=== PATIENT | female | born 1970 | race African-American/Black ===

== ENCOUNTER 2017-08-24 11:28 | Day surgery (SDC) | payer BC, OTHER ==
--- NOTE | 2017-08-23 14:13 | HP ---
Past Medical History - Primary Care Physician PCP:: Elliott Gomez - Admission Chief Complaint: Heavy irregular bleeding History of Present Illness: 46 year old Go complaining of heavy vaginal bleeding since August 17. She had not had any bleeding for 4 months. Bleeding became so heavy accompanied with severe pain which required ED evaluation at [facility]. Prior to March 2017 she was having vaginal bleeding irregularly everyother month. Patient was last seen in 2013 and due to large size of uterus with fibroids had gone for a second opinion regarding hysterectomy. Accourding to [facility], second opinion said Hysterectomy not necessary at that time. 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 Christina, client support manager with removal of endometrial polyps. - Past Medical History Pulmonary: Yes: Asthma Gastrointestinal: Yes: Irritable Bowel Disease Reproductive: Yes: Fibroids ...: 0 Heme/Onc: Yes: Anemia Rheumatology: Yes: Fibromyalgia, Lupus, Rheumatoid Arthritis Additional Medical History: Rheumatoid arthitis. Fibromyalgia. IBS. Lupus - Past Surgical History Past Surgical History: Yes: None Hx Myomectomy: No Hx Transabdominal Cerclage: No Additional Surgical History: D and C Hsyteroscopy 07/25/2012 Endometrial polyp. Cholecystectomy. Endometrial biopsy 07/15/2014 Disordered endometrium - Smoking History Smoking history: Never smoked Have you smoked in the past 12 months: No Aproximately how many cigarettes per day: 0 - Alcohol/Substance Use Hx Alcohol Use: No History of Substance Use: reports: None - Social History ADL: Independent History of Recent Travel: No Home Medications - Allergies Allergies/Adverse Reactions: Allergies Allergy/AdvReac Type Severity Reaction Status Date / Time moxifloxacin HCl Allergy Verified 08/20/17 16:32 [From Avelox] Penicillins Allergy Verified 08/20/17 16:32 - Home Medications Home Medications: Ambulatory Orders Montelukast Na [Singulair -] 10 mg PO HS #0 12/14/14 Omeprazole [Prilosec] 40 mg PO DAILY #0 12/14/14 Hydroxychloroquine Sulfate [Plaquenil] 400 mg PO DAILY 11/03/15 Ibuprofen 600 mg PO Q6H PRN #30 tablet 10/26/16 Oxycodone HCl/Acetaminophen [Endocet 7.5-325 mg Tablet] 1 each PO Q4H PRN #20 tablet MDD 6 tab 10/26/16 Pregabalin [Lyrica -] 100 mg PO BID 10/26/16 Family Disease History - Family Disease History Family Disease History: Diabetes: Grandparent, Heart Disease: Mother, Other: Brother (scleroderma) Other Family History: Cousin: Breast cancer Review of Systems - Review of Systems Constitutional: reports: Weakness Neck: reports: No Symptoms Cardiovascular: reports: No Symptoms Respiratory: reports: No Symptoms Gastrointestinal: reports: Abdominal Pain (Cramoing with onset of bleeding.) Musculoskeletal: reports: Back Pain, Joint Pain Neurological: reports: Headache Physical Exam-RHEOSTAT ASSEMBLER Constitutional: Yes: Obese HENT: Yes: WNL Neck: Yes: WNL, Supple, Trachea Midline Cardiovascular: Yes: WNL, Regular Rate and Rhythm Respiratory: Yes: WNL, Regular, CTA Bilaterally Gastrointestinal: Yes: WNL, Normal Bowel Sounds, Soft, Abdomen, Obese ...Rectal Exam: Yes: WNL Pelvis: Yes: WNL External Genitalia: Yes: Normal Internal Exam Deferred: No Vaginal Exam: Yes: Bleeding Cervix: Yes: Bleeding (No cervical lesion) Uterus: Yes: Anteverted, Enlarged, Firm Adnexa: Normal: Bilateral Extremities: Yes: WNL Edema: No Neurological: Yes: WNL, Alert, Oriented Psychiatric: Yes: WNL, Alert, Oriented Imaging - Results Ultrasound: Report Reviewed (Uterus is antevertedd and enlarged measuring 20 by 7 by 12 cm. Structure within left fundus 8 by 9 by 9 cm thickened endometrium vs leiomyoma. Lower uterune segment intramural 3.4 cm.), Image Reviewed Assessment/Plan Impression: Irregular heavy vaginal bleeding Anemia Fibroid uterus Plan: D and C Hysteroscopy Discussed possible hysterectomy if bleeding unable to be controlled. Importance of obtaining tissue for diagnosis to rule out neoplasia.
[2017-08-23 15:11] VITALS: BMI 44.2
--- NOTE | 2017-08-24 11:44 | HP ---
History & Physical Update - Assessment Assessment: No Change (46yo P0 with menometrorrhagia, fibroid uterus, and heavy vaginal bleeding leading to anemia admitted for hysteroscopy, D&C. We had discussed the risks, benefits, alternatives of surgery at length including but not limited to infection, bleeding, scarring, perforation, amenorrhea, infertility, hysterectomy, injury to surrounding/underlying organs or structure , need for additional surgery to repair/treat any complications, etc. The patient verbalized understanding and requested to proceed with surgery. I emphasized that all surgeries have risks and no guarantees can be provided.)
[2017-08-24] MEDS ORDERED: PROPOFOL 20 ML ONE (13:49)
[2017-08-24] MEDS ORDERED: MIDAZOLAM HCL 2 MG/2 ML SINGLE DOSE VIAL ONE ×2 (13:51→14:00)
[2017-08-24] MEDS ORDERED: ROCURONIUM BROMIDE 50 MG/5 ML VIAL ONE (14:05)
[2017-08-24] MEDS ORDERED: oxyCODONE HCL 5 MG TABLET PO PRN (14:16)
[2017-08-24] MEDS ORDERED: ONDANSETRON 4 MG/2 ML VIAL IVPUSH PRN (14:16)
[2017-08-24] MEDS ORDERED: LACTATED RINGERS SOLUTION 1,000 ML IV SCH (14:30)
[2017-08-24 16:19] VITALS: TEMP 98
[2017-08-24 17:27] VITALS: BP 129/74; PULSE 97
--- NOTE | 2017-08-24 17:27 | OP ---
Operative Note - Note: Operative Date: 08/24/17 Pre-Operative Diagnosis: Menometrorrhagia Operation: Hysteroscopy, D&C Findings: Enlarged uterine cavity, several submucous fundal myomas, thin endometrium Post-Operative Diagnosis: Same as Pre-op Surgeon: Nahun Allen Anesthesiologist/ASSISTANT [employer] COACH: Panfilo Carroll Anesthesia: General Specimens Removed: Endometrial curettings Estimated Blood Loss (mls): 10 Blood Volume Replaced (mls): 0 Fluid Volume Replaced (mls): 600 Operative Report Dictated: Yes
--- NOTE | 2017-08-25 07:09 | OP ---
DATE OF OPERATION: 08/24/2017 PREOPERATIVE DIAGNOSIS: Menometrorrhagia, fibroid uterus, anemia. POSTOPERATIVE DIAGNOSIS: Menometrorrhagia, fibroid uterus, anemia. PROCEDURES PERFORMED: Hysteroscopy, dilatation and curettage. SURGEON: Nahun Allen MD ANESTHESIOLOGIST: Panfilo Carroll MD ANESTHESIA: General. COMPLICATIONS: None. ESTIMATED BLOOD LOSS: 10 mL. INTRAVENOUS FLUIDS: 600 mL. PATHOLOGY: Endometrial curettings. FINDINGS: Examination under anesthesia revealed a large bulky uterus, consistent with approximately 17-18 weeks' . Hysteroscopy revealed an enlarged endometrial cavity with denuded endometrium and several submucosal fundal myomas. No other endometrial lesions were noted. DESCRIPTION OF PROCEDURE: The patient was met preoperatively. The risks, benefits and alternatives of surgery were discussed in detail. All questions were answered. The patient was then brought to the OR, with the IV running. She was placed on the surgical table in the supine position. General anesthesia was achieved without difficulty. The patient was then placed in a dorsal lithotomy position using adjustable Bubba stirrups. She was examined under anesthesia, with the findings as described above. The patient was then prepped and draped in the usual sterile fashion. A time-out procedure was conducted, as per standard protocol. A sterile speculum was then introduced inside the patient's vagina, with good visualization of the cervix. The cervix was grasped with a single-tooth tenaculum. The cervical os was dilated to accommodate a size 25 Decker dilator. A hysteroscope was introduced inside the uterine cavity, with the findings as described above. The hysteroscope was then removed. The cervical os was dilated to accommodate a size 27 Decker dilator. Sharp endometrial curettage was then performed, with the tissue was submitted to Pathology for examination. Once the curettage was performed, good hemostasis was noted. All of the instruments were removed from the patient. Sponge, lap and needle counts were correct. The patient was returned to the supine position and transferred to the recovery room awake and in stable condition. Kriss [id number]
--- NOTE | 2017-08-28 14:43 | PATH ---
Surgical Pathology Report Patient Name: AURORA DIAMOND [facility]. Rec. #: [id number] /Age/Gender: 1970 (Age: 46) / F Account: [id number] Location: [facility] SURGICAL Taken: 08/24/2017 Received: 08/27/2017 Reported: 08/28/2017 Physicians: Nahun Allen M.D. Specimen(s) Received ENDOMETRIAL CURETTINGS Clinical History Intermenstrual bleeding irregular Final Diagnosis ENDOMETRIUM, CURETTAGE: POLYPOID FRAGMENTS OF DISORDERED PROLIFERATIVE ENDOMETRIUM WITH STROMAL AND GLANDULAR BREAKDOWN. BENIGN ENDOCERVICAL GLANDULAR TISSUE. Electronically Signed Mickie Bull M.D. Gross Description Received in formalin labeled "endometrial curettings," is a 4.0 x 3.3 x 0.5 cm aggregate of alvarado-brown soft tissue fragments admixed with blood clot. The formalin is filtered and the specimen is entirely submitted in 2 cassettes. 08/27/2017 saudi08/27/2017
== END 2017-08-24 17:20 | disposition home or self-care (01) ==
LOC: JASU-SURG 11:28
PROVIDERS: ATTEND Obstetrics & Gynecology
PROC: 0UDB8ZX Extraction of Endometrium, Via Natural or Artificial Opening Endoscopic, Diagnostic (ICD-10-PCS; principal; 2017-08-24 13:30)
DX: N92.1 Excessive and frequent menstruation with irregular cycle (principal); D25.9 Leiomyoma of uterus, unspecified; D64.9 Anemia, unspecified
CPT/HCPCS: 36415; 84702; 88305-TC; 94760

== ENCOUNTER 2018-01-01 12:10 | Emergency (ER) | payer BC, OTHER ==
[2018-01-01 12:17] VITALS: BMI 46.7
--- NOTE | 2018-01-01 13:39 | PDOC ---
History of Present Illness - General Chief Complaint: Pain Stated Complaint: NAUSEA (LUPUS FLARE) Time Seen by Provider: 01/01/18 13:02 - History of Present Illness Initial Comments: 01/01/18 13:48 The patient is a 47 year old female with a history of Fibromyalgia, Lupus who presents for evaluation of a lupus flare. The patient reports a 2 week history of burning chest, back and arm pain similar to her prior lupus flares. She notes worsening pain over the weekend with associated nausea, diarrhea, and 2-3 days of non-bilious, non-bloody vomiting prompting her presentation to the ED for evaluation. She notes that she took 2 percocet to help with her pain with minimal improvement in her symptoms 4 days ago. She also notes that she took 10mg of predinisone 1 day ago as she had some left over from prior flares. She does note that her current symptoms are similar to her normal lupus flares that last from 1 week to 4+ weeks. She otherwise denies fevers, chills, SOB, abdominal pain, or changes with urination or bowel movements. Past History - Past Medical History Allergies/Adverse Reactions: Allergies Allergy/AdvReac Type Severity Reaction Status Date / Time moxifloxacin HCl Allergy "THROAT Verified 08/24/17 13:24 [From Avelox] CLOSES" Penicillins Allergy "THROAT Verified 08/24/17 13:24 CLOSES" Home Medications: Ambulatory Orders Montelukast Na [Singulair -] 10 mg PO HS #0 12/14/14 Omeprazole [Prilosec] 40 mg PO DAILY #0 12/14/14 Hydroxychloroquine Sulfate [Plaquenil] 400 mg PO DAILY 11/03/15 Pregabalin [Lyrica -] 100 mg PO BID 10/26/16 Ranitidine [Zantac -] 40 mg PO HS 08/23/17 predniSONE [Deltasone -] 60 mg PO DAILY #21 tablet 01/01/18 Anemia: Yes Asthma: Yes (H/O ASTHMA-2YRS AGO) Cancer: No Cardiac Disorders: Yes (H/O PERICARDITIS-9YRS AGO) CVA: No COPD: No CHF: No Dementia: No Diabetes: No GI Disorders: Yes (IBS, ULCERS) Disorders: No HTN: No Hypercholesterolemia: No Liver Disease: No Seizures: No Thyroid Disease: No Other medical history: Lupus, Fibromyalgia - Surgical History Abdominal Surgery: No Appendectomy: No Cardiac Surgery: No Cholecystectomy: Yes Lung Surgery: No Neurologic Surgery: No Orthopedic Surgery: No - Immunization History Immunization Up to Date: Yes - Suicide/Smoking/Psychosocial Hx Smoking Status: No Smoking History: Never smoked Have you smoked in the past 12 months: No Number of Cigarettes Smoked Daily: 0 Information on smoking cessation initiated: No Hx Alcohol Use: No Drug/Substance Use Hx: No Substance Use Type: None Hx Substance Use Treatment: No Review of Systems - Review of Systems Comments:: 01/01/18 13:52 Constitutional: No fevers, chills, fatigue, malaise HEENT: No Rhinorrhea, nasal congestion, visual changes Cardiovascular: Chest pain. No syncope, palpitations, lightheadedness Respiratory: No Cough, SOB, Hemoptysis, Gastrointestinal: Nausea, Vomiting, Diarrhea. No Abdominal pain, Constipation, Melena Genitourinary: No Dysuria, Frequency, Urgency, Hesitancy, Hematuria, Flank pain Musculoskeletal: Back and Arm Pain. No Myalgia, arthralgia Skin: No rashes, itching, bruising, pallor Neurologic: No Headache, Dizziness, Numbness, Weakness, or Tingling Psychiatric: No Hallucinations. No SI or HI *Physical Exam - Vital Signs Last Vital Signs Temp Pulse Resp BP Pulse Ox 97.8 F 116 H 18 137/82 100 01/01/18 12:14 01/01/18 12:14 01/01/18 12:14 01/01/18 12:14 01/01/18 12:14 - Physical Exam Comments: 01/01/18 13:53 General Appearance: Nourished. No Apparent Distress HEENT: EOMI, VAZQUEZ. No Pharyngeal Erythema, Tonsillar Exudate, Tonsillar Erythema Neck: No Cervical Lymphadenopathy Respiratory/Chest: Lungs Clear, Normal Breath Sounds. No Crackles, Rales, Rhonchi, Wheezing Cardiovascular: Regular Rhythm, Regular Rate. No Murmur, Gallops, Rubs Gastrointestinal/Abdominal: Normal Bowel Sounds, Soft. No Guarding, Rebound, Tenderness Musculoskeletal: No CVA Tenderness Extremity: Normal Capillary Refill Integumentary: Normal Color, Dry, Warm Neurologic: Fully Oriented, Alert, Normal Mood/Affect, Normal Response, Heart Score/ECG Review #1 ECG reviewed & interpreted by me at: 16:00 General ECG Interpretation: Sinus Rhythm, Normal Rate, Normal Intervals, No acute ischemic changes ED Treatment Course - LABORATORY CBC & Chemistry Diagram: 01/01/18 14:37 01/01/18 14:37 Medical Decision Making - Medical Decision Making 01/01/18 13:53 The patient is a 47 year old female with a history of Fibromyalgia, Lupus who presents for evaluation of a lupus flare. Differential includes but is not limited to: Lupus flare, ACS, Infectious, Metabolic derangement. Given the patient's similar symptoms to her prior lupus flares, it is likely her current symptoms are due to a lupus flare. We will obtain a cbc, cmp, esr, crp, ua, ekg , chest plain film to evaluate for possible other etiologies. We will treat with iv fluids, zofran, morphine, and solu-medrol. The patient does not demonstrate any infectious signs on exam or neurologic symptoms and does not have a history of end organ dysfunction. We will continue to monitor and reassess in the meantime. 01/01/18 18:04 CBC, cmp, ua are unremarkable. Chest plain film is unremarkable as read by our radiologist. The patient reports some improvement in her symptoms. We are comfortable discharging the patient home at this time with a course of predinisone and primary care provider follow up. We discussed the results, plan , and return precautions with the patient who voiced understanding and is agreeable with the plan. *DC/Admit/Observation/Transfer Diagnosis at time of Disposition: Lupus (systemic lupus erythematosus) Qualifiers: Systemic lupus erythematosus type: unspecified Systemic lupus erythematosus organ involvement: unspecified Qualified Code(s): M32.9 - Systemic lupus erythematosus, unspecified - Discharge Dispostion Disposition: HOME Condition at time of disposition: Good Admit: No - Prescriptions Prescriptions: predniSONE [Deltasone -] 60 mg PO DAILY #21 tablet - Referrals Referrals: Elliott Gomez MD [Primary Care Provider] - - Patient Instructions Printed Discharge Instructions: DI for Systemic Lupus Erythematosus Additional Instructions: Please return to the ER if you experience concerning or worsening symptoms including worsening pain, difficulty breathing, chest pain, or fevers. Your lab results were normal here in the ER. Your symptoms are likely due to a lupus flare. We have sent a prescription to your pharmacy for prednisone that you should take 60mg daily for the next 5-7 days. Please call to schedule a follow up appointment with your primary care provider within 2-3 days to discuss your ER visit and further management of your symptoms. - Post Discharge Activity
[2018-01-01] MEDS ORDERED: ONDANSETRON 4 MG/2 ML VIAL IVPUSH ONE (13:46)
[2018-01-01] MEDS ORDERED: methylPREDNISolone NA SUCC 125 MG/2 ML VIAL IVPUSH ONE (13:46)
[2018-01-01] MEDS ORDERED: SODIUM CHLORIDE 1,000 ML IV STA (13:46)
[2018-01-01] MEDS ORDERED: morphine CARPU-JECT 4 MG/1 ML DISP.SYRIN IVPUSH ONE (13:54)
--- NOTE | 2018-01-01 14:04 | PDOC ---
Attending Attestation - Resident Resident Name: KatherineKishore - ED Attending Attestation I have performed the following: I have examined & evaluated the patient, The case was reviewed & discussed with the resident, I agree w/resident's findings & plan, Exceptions are as noted - HPI HPI: 01/01/18 13:56 47y/o F with history of lupus (history of cholecystectomy, no known renal disease or hypercoagulability, has flares once to twice a year) presents with flare over the last 2 weeks no longer relieved by home Percocet. Complaining of intermittent muscular skeletal complaints and some nausea/vomiting with decreased appetite. No fevers or chills, no localizing infectious symptoms, no cardiopulmonary symptoms, no neurological symptoms. Has been managing her pain with Percocet but after 2 pills no longer relieved her symptoms, she presents for evaluation. - Physicial Exam PE: 01/01/18 13:58 Afebrile, tachycardia Well-appearing, conversant and smiling in no acute distress op clear, neck supple lungs clear, heart regular rate at this time no edema abd soft/nt - Medical Decision Making 01/01/18 14:04 Patient seen and evaluated with the resident. I agree with the overall evaluation, assessment, and management with the following summary of visit: 47-year-old female with history of lupus presents with her typical lupus flare symptoms over the course of one week, no longer relieved at home with medications. No clear infectious triggers, but patient states she has been traveling and taking care of her parents leading to increased stress, decreased by mouth intake, and decreased sleep. These have been triggers for her in the past, and are likely the culprit again. Check labs EKG, chest x-ray Pain control, nausea control, IV fluid rehydration initiate steroids for flare Reassess 01/01/18 16:34 Labs are within normal limits, urinalysis pending. If above is within normal limits, can discharge on steroids to outpatient follow -up. Patient was signed out to the oncoming ED physician to follow-up the results, reassess the patient, and dispo accordingly. Heart Score/ECG Review #1 ECG reviewed & interpreted by me at: 15:45 General ECG Interpretation: Sinus Rhythm, Normal Rate (95), Normal Intervals ( qtc 452), No acute ischemic changes
[2018-01-01] MEDS ORDERED: morphine SULFATE 4 MG/ML VIAL ONE (14:13)
[2018-01-01] MEDS ORDERED: methylPREDNISolone NA SUCC 125 MG/2 ML VIAL ONE (14:13)
[2018-01-01] MEDS ORDERED: ONDANSETRON 4 MG/2 ML VIAL ONE (14:13)
[2018-01-01 14:52] LABS: BASO % 0.6 % (0-2.0); EOS % 0.5 % (0-4.5); HEMATOCRIT 31.8 % (32.4-45.2); HEMOGLOBIN 10.2 GM/dL (10.7-15.3); LYMPH % 23.8 % (8-40); MCH 24.8 pg (25.7-33.7); MCHC 32.1 g/dl (32.0-36.0); MEAN CELL VOLUME 77.4 fl (80-96); MEAN PLT VOLUME 8.2 fl (7.5-11.1); MONO % 12.3 % (3.8-10.2); NEUT % 62.8 % (42.8-82.8); PLATELET COUNT 442 K/MM3 (134-434); RBC 4.11 M/mm3 (3.60-5.2); RDW 17.5 % (11.6-15.6); WHITE BLOOD COUNT 8.8 K/mm3 (4.0-10.0)
[2018-01-01 15:13] LABS: ALBUMIN 3.7 g/dl (3.4-5.0); ANION GAP 10 (8-16); BLOOD UREA NITROGEN 10 mg/dL (7-18); CALCIUM 9.2 mg/dL (8.5-10.1); CHLORIDE 109 mmol/L (98-107); CO2 24 mmol/L (21-32); CREATININE 0.9 mg/dL (0.55-1.02); GLUCOSE,RANDOM 97 mg/dL (74-106); SGOT/AST 20 U/L (15-37); SODIUM 143 mmol/L (136-145)
[2018-01-01 15:39] LABS: ALK PHOS 52 U/L (45-117); BILIRUBIN,TOTAL 0.2 mg/dL (0.2-1.0); SGPT/ALT 17 U/L (12-78); TOT PROT 7.1 g/dl (6.4-8.2)
--- NOTE | 2018-01-01 16:25 | EKG ---
Test Reason : Blood Pressure : / mmHG Vent. Rate : 095 BPM Atrial Rate : 095 BPM P-R Int : 142 ms QRS Dur : 088 ms QT Int : 360 ms P-R-T Axes : 049 002 018 degrees QTc Int : 452 ms NORMAL SINUS RHYTHM NORMAL ECG WHEN COMPARED WITH ECG OF 03-NOV-2015 14:30, NO SIGNIFICANT CHANGE WAS FOUND Confirmed by Marco A Root ([id number]) on 01/01/2018 4:25:11 PM Referred By: Confirmed By:Marco A Root
[2018-01-01 17:01] LABS: URINE APPEARANCE CLEAR; URINE BILIRUBIN NEGATIVE (NEGATIVE); URINE BLOOD NEGATIVE (NEGATIVE); URINE COLOR LTYELLOW; URINE GLUCOSE (UA) NEGATIVE (NEGATIVE); URINE KETONE NEGATIVE (NEGATIVE); URINE LEUK ESTERASE NEGATIVE (NEGATIVE); URINE NITRITE NEGATIVE (NEGATIVE); URINE PROTEIN NEGATIVE (NEGATIVE); URINE UROBILINOGEN NEGATIVE mg/dL (0.2-1.0)
[2018-01-01 18:21] VITALS: BP 137/89; PULSE 99; TEMP 98.4
== END 2018-01-01 18:27 | disposition home or self-care (01) ==
LOC: JER 12:10
PROC: 3E033NZ Introduction of Analgesics, Hypnotics, Sedatives into Peripheral Vein, Percutaneous Approach (ICD-10-PCS; principal; 2018-01-01)
PROC: 3E0333Z Introduction of Anti-inflammatory into Peripheral Vein, Percutaneous Approach (ICD-10-PCS; 2018-01-01)
PROC: 3E033GC Introduction of Other Therapeutic Substance into Peripheral Vein, Percutaneous Approach (ICD-10-PCS; 2018-01-01)
DX: M32.8 Other forms of systemic lupus erythematosus (principal); M79.7 Fibromyalgia; J45.909 Unspecified asthma, uncomplicated; K58.9 Irritable bowel syndrome, unspecified
CPT/HCPCS: 36415; 71046-TC-FY; 80053; 81003; 82550; 82553; 84484; 85025; 85651; 86140; 93005; 93010; 99283-25; J7030

== ENCOUNTER 2018-02-01 12:43 | Emergency (ER) | payer SELFPAY ==
[2018-02-01 12:59] VITALS: TEMP 98; BMI 44.5
[2018-02-01] MEDS ORDERED: PREGABALIN 100 MG CAPSULE PO ONE (13:38)
[2018-02-01] MEDS ORDERED: HYDROXYCHLOROQUINE SO4 200 MG TABLET (FP) PO SCH (13:45)
--- NOTE | 2018-02-01 13:58 | PDOC ---
History of Present Illness - History of Present Illness Initial Comments: 02/01/18 14:10 The patient is a 47 year old female, with a significant PMH of lupus, fibromyalgia, IBS, asthma who presents to the emergency department with 5 days of progressively worsening diffuse body aches, burning sensation in her chest, back, thighs and a headache. The patient states the pain is consistent with her fibromyalgia flare ups. The patient states she ran out of her medications due to insurance issues and will not be able to renew her medication until February 12. The patient states she normally takes Lyrica 100 mg BID for the fibromyalgia pain with relief. The patient denies any recent injury or trauma. The patient denies cardiac chest pain, palpitations, shortness of breath, calf tenderness and dizziness. Denies fever, chills, nausea, vomit, diarrhea and constipation. Denies dysuria, frequency, urgency and hematuria. Allergies: penicillin, moxifloxacin HCL Social history: No reported PCP: Dr. Gomez <French Cooper - Last Filed: 02/01/18 14:10> - General History Source: Patient Exam Limitations: No Limitations <Rip Stanley - Last Filed: 02/01/18 15:46> - General Chief Complaint: Pain Stated Complaint: HEADACHE (LUPUS FLARE) Time Seen by Provider: 02/01/18 13:16 Past History <French Cooper - Last Filed: 02/01/18 14:10> - Past Medical History Anemia: Yes Asthma: Yes (H/O ASTHMA-2YRS AGO) Cancer: No Cardiac Disorders: Yes (H/O PERICARDITIS-9YRS AGO) CVA: No COPD: No CHF: No DVT: No Dementia: No Diabetes: No GI Disorders: Yes (IBS, ULCERS) Disorders: No HTN: No Hypercholesterolemia: No Liver Disease: No Seizures: No Thyroid Disease: No Other medical history: lupus , fibromyalgia - Surgical History Abdominal Surgery: No Appendectomy: No Cardiac Surgery: No Cholecystectomy: Yes Lung Surgery: No Neurologic Surgery: No Orthopedic Surgery: No - Immunization History Immunization Up to Date: Yes - Suicide/Smoking/Psychosocial Hx Smoking Status: No Smoking History: Never smoked Have you smoked in the past 12 months: No Number of Cigarettes Smoked Daily: 0 Information on smoking cessation initiated: No Hx Alcohol Use: No Drug/Substance Use Hx: No Substance Use Type: None Hx Substance Use Treatment: No <Park,Rip - Last Filed: 02/01/18 15:46> - Past Medical History Allergies/Adverse Reactions: Allergies Allergy/AdvReac Type Severity Reaction Status Date / Time moxifloxacin HCl Allergy "THROAT Verified 02/01/18 12:56 [From Avelox] CLOSES" Penicillins Allergy "THROAT Verified 02/01/18 12:56 CLOSES" Home Medications: Ambulatory Orders Montelukast Na [Singulair -] 10 mg PO HS #0 12/14/14 Omeprazole [Prilosec] 40 mg PO DAILY #0 12/14/14 Hydroxychloroquine Sulfate [Plaquenil] 400 mg PO DAILY 11/03/15 Pregabalin [Lyrica -] 100 mg PO BID 10/26/16 Ranitidine [Zantac -] 40 mg PO HS 08/23/17 predniSONE [Deltasone -] 60 mg PO DAILY #21 tablet 01/01/18 Hydroxychloroquine Sulfate [Plaquenil] 400 mg PO DAILY #20 tablet 02/01/18 Pregabalin [Lyrica] 100 mg PO BID #20 capsule MDD 2 02/01/18 Review of Systems - Review of Systems Comments:: 02/01/18 14:14 GENERAL/CONSTITUTIONAL: No fever or chills. No weakness. HEAD, EYES, EARS, NOSE AND THROAT: No change in vision. No ear pain or discharge. No sore throat. CARDIOVASCULAR: No chest pain or shortness of breath. RESPIRATORY: No cough, wheezing, or hemoptysis. GASTROINTESTINAL: No nausea, vomiting, diarrhea or constipation. GENITOURINARY: No dysuria, frequency, or change in urination. MUSCULOSKELETAL: +Generalized body aches. +Burning sensation in the back, thighs , and chest. No neck pain. SKIN: No rash NEUROLOGIC: +Headache. No vertigo, loss of consciousness, or change in strength/ sensation. ENDOCRINE: No increased thirst. No abnormal weight change. HEMATOLOGIC/LYMPHATIC: No anemia, easy bleeding, or history of blood clots. ALLERGIC/IMMUNOLOGIC: No hives or skin allergy. <French Coopre - Last Filed: 02/01/18 14:10> *Physical Exam - Vital Signs Last Vital Signs Temp Pulse Resp BP Pulse Ox 98.0 F 93 H 18 141/81 100 02/01/18 12:56 02/01/18 12:56 02/01/18 12:56 02/01/18 12:56 02/01/18 12:56 - Physical Exam Comments: 02/01/18 14:15 GENERAL: Obese. Awake, alert, and fully oriented, in no acute distress HEAD: No signs of trauma EYES: PERRLA, EOMI, sclera anicteric, conjunctiva clear ENT: Auricles normal inspection, hearing grossly normal, nares patent, oropharynx clear without exudates. Moist mucosa NECK: Normal ROM, supple. LUNGS: Breath sounds equal, clear to auscultation bilaterally. No wheezes, and no crackles HEART: Regular rate and rhythm, normal S1 and S2, no murmurs, rubs or gallops ABDOMEN: Soft, nontender. No guarding, no rebound. No masses EXTREMITIES: Normal range of motion, no edema. No clubbing or cyanosis. No cords, erythema, or tenderness NEUROLOGICAL: Cranial nerves II through XII intact. Normal speech, normal gait SKIN: Warm, Dry, normal turgor, no rashes or lesions noted. <French Cooper - Last Filed: 02/01/18 14:10> - Vital Signs Last Vital Signs Temp Pulse Resp BP Pulse Ox 98.0 F 93 H 18 141/81 100 02/01/18 12:56 02/01/18 12:56 02/01/18 12:56 02/01/18 12:56 02/01/18 12:56 <Rip Stanley - Last Filed: 02/01/18 15:46> Heart Score/ECG Review #1 ECG reviewed & interpreted by me at: 13:55 02/01/18 13:59 NSR 83, no kala/std, normal axis, normal intervals, TWI III, QTC 441 msec <Rip Stanley - Last Filed: 02/01/18 15:46> ED Treatment Course - Medications Given in the ED: ED Medications Discontinued Medications Generic Name Dose Route Start Last Admin Trade Name Freq PRN Reason Stop Dose Admin Pregabalin 100 mg 02/01/18 13:38 02/01/18 14:05 Lyrica - PO 02/01/18 13:39 100 mg ONCE ONE Administration <French Cooper - Last Filed: 02/01/18 14:10> - LABORATORY CBC & Chemistry Diagram: 02/01/18 13:59 02/01/18 13:59 - RADIOLOGY Radiology Studies Ordered: Category Date Time Status CHEST X-RAY PORTABLE* [RAD] Stat Radiology 02/01/18 13:39 Ordered <Rip Stanley - Last Filed: 02/01/18 15:46> Medical Decision Making - Medical Decision Making 02/01/18 13:50 A portion of this note was documented by scribe services under my direction. I have reviewed the details of the note, within reason, and agree with the documentation with the following case summary and management plan written by me. Patient treated in the ED. Nursing notes are reviewed and incorporated into the medical decision-making. Vital signs reviewed. Peripheral IV access obtained by the nurse, laboratory studies are drawn and sent, reviewed and interpreted by myself. Vital Signs Temp Pulse Resp BP Pulse Ox 98.0 F 93 H 18 141/81 100 02/01/18 12:56 02/01/18 12:56 02/01/18 12:56 02/01/18 12:56 02/01/18 12:56 47-year-old female with past medical history of lupus and fibromyalgia, obesity , migraines, irritable bowel syndrome, asthma presents with diffuse body aches and burning-like sensation over body including chest and tension-like headache. Patient reports she had several weeks of the symptoms but due to insurance issues, the patient had recently ran out of her medications including Lyrica 100 mg twice a day, plaquenil 400 mg daily, 25 mg of amitriptyline once a day at night, Singulair 10 mg once a day and night, 150 mg of ranitidine once a day. Since then, last 5 days, her symptoms have worsened. Denies fevers or chills. States that she believes that her fibromyalgia and lupus are getting worse. Her insurance will reactivate starting on February 12. I also agree that I suspect this is likely secondary to her fibromyalgia and lupus. We'll reinitiate her medications. However, patient has no means of obtaining her medications as an outpatient. I had discussed this with Dr. Gomez who is aware of her insurance issues. Will treat, get blood work and reassess. 02/01/18 15:43 CBC, BMP 02/01/18 13:59 02/01/18 13:59 CMP Sodium 141 mmol/L (136-145) 02/01/18 13:59 Potassium 4.1 mmol/L (3.5-5.1) 02/01/18 13:59 Chloride 107 mmol/L (98-107) 02/01/18 13:59 Carbon Dioxide 25 mmol/L (21-32) 02/01/18 13:59 Anion Gap 9 (8-16) 02/01/18 13:59 BUN 12 mg/dL (7-18) 02/01/18 13:59 Creatinine 0.8 mg/dL (0.55-1.02) 02/01/18 13:59 Creat Clearance w eGFR > 60 (>60) 02/01/18 13:59 Random Glucose 77 mg/dL (74-106) 02/01/18 13:59 Calcium 9.0 mg/dL (8.5-10.1) 02/01/18 13:59 Total Bilirubin 0.2 mg/dL (0.2-1.0) 02/01/18 13:59 AST 19 U/L (15-37) 02/01/18 13:59 ALT 18 U/L (12-78) 02/01/18 13:59 Alkaline Phosphatase 46 U/L (45-117) 02/01/18 13:59 Creatine Kinase 195 IU/L (26-192) H 02/01/18 13:59 Creatine Kinase Index 0.5 % (0.0-5.0) 02/01/18 13:59 CK-MB (CK-2) < 1.000 ng/mL (0.5-3.6) 02/01/18 13:59 Troponin I < 0.02 ng/ml (0.00-0.05) 02/01/18 13:59 Total Protein 7.0 g/dl (6.4-8.2) 02/01/18 13:59 Albumin 3.6 g/dl (3.4-5.0) 02/01/18 13:59 02/01/18 15:43 Chest PA and lateral reviewed by me, pending official radiology read. No acute findings. The patient reports feeling relief with the medications. I suspect that the patient's symptoms are caused by inability to take her medications. Case was discussed with case finishing machine adjuster Raymond and [facility] who was able to assist the patient. We had managed to discuss the case with [facility] who is able to fill out a prescription of her medications (pt is only requesting for plaquinil and lyrica) on a sliding scale. This will give the patient a bridge over to when her insurance kicks in. Pt is agreeable with plan. I discussed the physical exam findings, ancillary test results and final diagnoses with the patient. I answered all of the patient's questions. The patient was satisfied with the care received and felt comfortable with the discharge plan and treatment plan. The patient will call their primary care physician within 24 hours to arrange follow-up and will return to the Emergency Department with any new, persistant or worsening symptoms. <Rip Stanley - Last Filed: 02/01/18 15:46> *DC/Admit/Observation/Transfer - Attestations Scribe Attestion: 02/01/18 14:16 Documentation prepared by French Cooper, acting as medical assistant float for Rip Stanley MD. <French Cooper - Last Filed: 02/01/18 14:10> - Discharge Dispostion Admit: No <Rip Stanley - Last Filed: 02/01/18 15:46> Diagnosis at time of Disposition: Fibromyalgia Lupus Qualifiers: Lupus erythematosus form: unspecified Qualified Code(s): L93.0 - Discoid lupus erythematosus - Discharge Dispostion Disposition: HOME Condition at time of disposition: Stable - Prescriptions Prescriptions: Hydroxychloroquine Sulfate [Plaquenil] 400 mg PO DAILY #20 tablet Pregabalin [Lyrica] 100 mg PO BID #20 capsule MDD 2 - Patient Instructions Printed Discharge Instructions: DI for Systemic Lupus Erythematosus, Fibromyalgia Additional Instructions: Please go to [facility] and [facility] pick[facility] your prescription. [address] [place], [place] Please follow up with your primary care physician.
[2018-02-01] MEDS ORDERED: PREGABALIN 100 MG CAPSULE ONE (14:01)
[2018-02-01 14:18] LABS: BASO % 1.2 % (0-2.0); EOS % 3.1 % (0-4.5); HEMATOCRIT 31.7 % (32.4-45.2); LYMPH % 38.7 % (8-40); MCH 24.7 pg (25.7-33.7); MCHC 31.6 g/dl (32.0-36.0); MEAN CELL VOLUME 78.2 fl (80-96); MEAN PLT VOLUME 7.6 fl (7.5-11.1); MONO % 13.1 % (3.8-10.2); NEUT % 43.9 % (42.8-82.8); PLATELET COUNT 400 K/MM3 (134-434); RBC 4.05 M/mm3 (3.60-5.2); RDW 18.5 % (11.6-15.6)
[2018-02-01 14:27] LABS: HCG,QUALITATIVE URINE NEGATIVE
[2018-02-01 14:28] LABS: URINE APPEARANCE SLCLOUDY; URINE BILIRUBIN NEGATIVE (<2.0 mg/dL); URINE BLOOD NEGATIVE (NEGATIVE); URINE COLOR LTYELLOW; URINE GLUCOSE (UA) NEGATIVE (NEGATIVE); URINE KETONE NEGATIVE (NEGATIVE); URINE LEUK ESTERASE NEGATIVE (NEGATIVE); URINE NITRITE NEGATIVE (NEGATIVE); URINE PROTEIN NEGATIVE (NEGATIVE); URINE UROBILINOGEN NEGATIVE mg/dL (0.2-1.0)
[2018-02-01 14:43] LABS: ALBUMIN 3.6 g/dl (3.4-5.0); ANION GAP 9 (8-16); BILIRUBIN,TOTAL 0.2 mg/dL (0.2-1.0); BLOOD UREA NITROGEN 12 mg/dL (7-18); CHLORIDE 107 mmol/L (98-107); CO2 25 mmol/L (21-32); CREATININE 0.8 mg/dL (0.55-1.02); GLUCOSE,RANDOM 77 mg/dL (74-106); POTASSIUM 4.1 mmol/L (3.5-5.1); SGOT/AST 19 U/L (15-37); SGPT/ALT 18 U/L (12-78); SODIUM 141 mmol/L (136-145)
[2018-02-01 14:45] LABS: ALK PHOS 46 U/L (45-117)
[2018-02-01 15:58] VITALS: BP 130/78; PULSE 78
--- NOTE | 2018-02-02 08:47 | EKG ---
Test Reason : Blood Pressure : / mmHG Vent. Rate : 083 BPM Atrial Rate : 083 BPM P-R Int : 128 ms QRS Dur : 090 ms QT Int : 376 ms P-R-T Axes : 057 002 010 degrees QTc Int : 441 ms NORMAL SINUS RHYTHM NORMAL ECG WHEN COMPARED WITH ECG OF 01-JAN-2018 15:45, NO SIGNIFICANT CHANGE WAS FOUND Confirmed by LAURIE MONTALVO MD ([id number]) on 02/02/2018 8:47:40 AM Referred By: Confirmed By:LAURIE MONTALVO MD
== END 2018-02-01 15:58 | disposition home or self-care (01) ==
LOC: JER 12:43
DX: M79.7 Fibromyalgia (principal); L93.0 Discoid lupus erythematosus; Z91.14 Patient's other noncompliance with medication regimen; Z87.09 Personal history of other diseases of the respiratory system; Z86.19 Personal history of other infectious and parasitic diseases; Z86.2 Personal history of diseases of the blood and blood-forming organs and certain disorders involving the immune mechanism
CPT/HCPCS: 36415; 71046-TC-FY; 80053; 81003; 82550; 82553; 84484; 84703; 85025; 93005; 93010; 99284-25

== ENCOUNTER 2018-11-08 15:54 | Emergency (ER) | payer OTHER ==
[2018-11-08 16:52] VITALS: BP 138/79; PULSE 98; TEMP 98.1; BMI 42.9
--- NOTE | 2018-11-08 16:54 | PDOC ---
Rapid Medical Evaluation Time Seen by Provider: 11/08/18 16:49 Medical Evaluation: Allergies Allergy/AdvReac Type Severity Reaction Status Date / Time moxifloxacin HCl Allergy "THROAT Verified 02/01/18 12:56 [From Avelox] CLOSES" Penicillins Allergy "THROAT Verified 02/01/18 12:56 CLOSES" 11/08/18 16:50 Pt c/o: bruising over rt knee since wed am,denies injury, worse now, hx of lupus Pt on brief exam: no bruising, no edema, tenderness over inner aspect of rt knee and upper calf, - homans Patient ordered for: duplex Pt to proceed to the ED Discharge Disposition - Diagnosis Right leg pain, Knee pain, right - Discharge Dispostion Disposition: HOME Condition at time of disposition: Stable - Referrals Referrals: Elliott Gomez MD [Primary Care Provider] - - Patient Instructions Additional Instructions: Follow up with your regular doctor in 1-2 days for reevaluation and return for worsening/concerning symptoms including leg swelling, worsening pain, chest pain , difficulty breathing. - Post Discharge Activity
--- NOTE | 2018-11-08 19:07 | PDOC ---
History of Present Illness - General Chief Complaint: Pain, Acute Stated Complaint: PCP SENT Time Seen by Provider: 11/08/18 16:49 History Source: Patient Exam Limitations: No Limitations - History of Present Illness Initial Comments: 11/08/18 19:01 48 yo F w/ a h/o lupus comes in c/o R atraumatic knee pain for the past 2 days. She called her PMD who told her to come to the ER for an xray, no other complaints today, no numbness/tingling, no sensory deficits, no calf pain/ swelling, no h/o DVT/PE, no recent prolonged immobilization, no family h/o DVT, no recent surgery, no estrogen use, no smoking, no recent trauma/fall. Past History - Past Medical History Allergies/Adverse Reactions: Allergies Allergy/AdvReac Type Severity Reaction Status Date / Time moxifloxacin HCl Allergy "THROAT Verified 02/01/18 12:56 [From Avelox] CLOSES" Penicillins Allergy "THROAT Verified 02/01/18 12:56 CLOSES" Home Medications: Ambulatory Orders Montelukast Na [Singulair -] 10 mg PO HS #0 12/14/14 Omeprazole [Prilosec] 40 mg PO DAILY #0 12/14/14 Hydroxychloroquine Sulfate [Plaquenil] 400 mg PO DAILY 11/03/15 Pregabalin [Lyrica -] 100 mg PO BID 10/26/16 Ranitidine [Zantac -] 150 mg PO HS 08/23/17 Amitriptyline HCl 25 mg PO DAILY 02/01/18 Hydroxychloroquine Sulfate [Plaquenil] 400 mg PO DAILY #20 tablet 02/01/18 Pregabalin [Lyrica] 100 mg PO BID #20 capsule MDD 2 02/01/18 Anemia: Yes Asthma: Yes (H/O ASTHMA-2YRS AGO) Cancer: No Cardiac Disorders: Yes (H/O PERICARDITIS-9YRS AGO) CVA: No COPD: No CHF: No DVT: No Dementia: No Diabetes: No GI Disorders: Yes (IBS, ULCERS) Disorders: No HTN: No Hypercholesterolemia: No Liver Disease: No Seizures: No Thyroid Disease: No - Surgical History Abdominal Surgery: No Appendectomy: No Cardiac Surgery: No Cholecystectomy: Yes Lung Surgery: No Neurologic Surgery: No Orthopedic Surgery: No - Immunization History Immunization Up to Date: Yes - Suicide/Smoking/Psychosocial Hx Smoking Status: No Smoking History: Never smoked Have you smoked in the past 12 months: No Number of Cigarettes Smoked Daily: 0 Hx Alcohol Use: No Drug/Substance Use Hx: No Substance Use Type: None Hx Substance Use Treatment: No Review of Systems - Review of Systems Able to Perform ROS?: Yes Constitutional: No: Chills, Fever, Malaise, Night Sweats HEENTM: No: Eye Pain, Recent change in vision, Throat Pain Respiratory: No: Cough, Shortness of Breath Cardiac (ROS): No: Chest Pain, Palpitations, Chest Tightness ABD/GI: No: Diarrhea, Nausea, Vomiting, Abdominal cramping : No: Dysuria, Hematuria Musculoskeletal: No: Back Pain Integumentary: No: Rash Neurological: No: Headache, Numbness, Dizziness Psychiatric: No: Change in Appetite Endocrine: No: Unexplained Weight Loss *Physical Exam - Vital Signs Last Vital Signs Temp Pulse Resp BP Pulse Ox 98.1 F 98 H 18 138/79 98 11/08/18 16:50 11/08/18 16:50 11/08/18 16:50 11/08/18 16:50 11/08/18 16:50 - Physical Exam General Appearance: Yes: Nourished. No: Apparent Distress HEENT: positive: VAZQUEZ, Normal Voice. negative: Pale Conjunctivae, Scleral Icterus (R), Scleral Icterus (L) Neck: positive: Supple. negative: Decreased range of motion, Tender midline Respiratory/Chest: negative: Respiratory Distress, Accessory Muscle Use Cardiovascular: positive: Regular Rate Musculoskeletal: positive: Normal Inspection. negative: CVA Tenderness, Decreased Range of Motion Extremity: positive: Normal Capillary Refill, Normal Inspection, Normal Range of Motion, Other (R knee with no skin changes, no swelling, no signs of phlebitis, mild tenderness to yesenia medially, mild popliteal tenderness, no calf tenderness, (-)Jennifer sign, FROM knee, 5/5 strength, able to straight leg raise. GOod distal pulses, good cap refill.). negative: Tender, Pedal Edema Integumentary: positive: Normal Color, Dry. negative: Jaundice, Rash Neurologic: positive: Fully Oriented, Alert, Normal Mood/Affect Moderate Sedation - Procedure Monitoring Vital Signs: Procedure Monitoring Vital Signs Temperature 98.1 F 11/08/18 16:50 Pulse Rate 98 H 11/08/18 16:50 Respiratory Rate 18 11/08/18 16:50 Blood Pressure 138/79 11/08/18 16:50 O2 Sat by Pulse Oximetry (%) 98 11/08/18 16:50 ED Treatment Course - RADIOLOGY Radiology Studies Ordered: Category Date Time Status KNEE 3 POS-RIGHT [RAD] Stat Radiology 11/08/18 17:46 Completed Medical Decision Making - Medical Decision Making 11/08/18 18:30 48 yo w/ a h/o lupus c/o atrauimatic knee pain. WIll do a sono R?O DVT due to h/ o lupus and hypercoagulable state. WIll also do an xray requested by PMD. 11/08/18 19:08 XRay and sono WNLs Pt placed in Bernardo wrap WIll discharge with motrin, PMD follow up in 1-2 days Return for worsening/concerning symptoms Pt verbalizes understanding and agrees with plan 11/08/18 19:10 *DC/Admit/Observation/Transfer Diagnosis at time of Disposition: Right leg pain Knee pain, right Qualifiers: Chronicity: unspecified Qualified Code(s): M25.561 - Pain in right knee - Discharge Dispostion Disposition: HOME Condition at time of disposition: Stable - Referrals Referrals: Elliott Gomez MD [Primary Care Provider] - - Patient Instructions Additional Instructions: Follow up with your regular doctor in 1-2 days for reevaluation and return for worsening/concerning symptoms including leg swelling, worsening pain, chest pain , difficulty breathing. - Post Discharge Activity
== END 2018-11-08 19:24 | disposition home or self-care (01) ==
LOC: JERFT 15:54
DX: M25.561 Pain in right knee (principal); Z87.39 Personal history of other diseases of the musculoskeletal system and connective tissue; Z87.19 Personal history of other diseases of the digestive system; Z87.09 Personal history of other diseases of the respiratory system; Z86.2 Personal history of diseases of the blood and blood-forming organs and certain disorders involving the immune mechanism
CPT/HCPCS: 73562-TC-RT-FY; 93971-TC; 99281-25

== ENCOUNTER 2018-12-20 08:11 | Emergency (ER) | payer OTHER ==
[2018-12-20 08:36] VITALS: BP 150/71; PULSE 110; TEMP 99.5; BMI 44.4
--- NOTE | 2018-12-20 08:38 | PDOC ---
History of Present Illness - General Chief Complaint: Pain, Acute Stated Complaint: PAIN / COLD SYMPTOMS Time Seen by Provider: 12/20/18 08:38 History Source: Patient Exam Limitations: No Limitations Past History - Travel Traveled outside of the country in the last 30 days: No Close contact w/someone who was outside of country & ill: No - Past Medical History Allergies/Adverse Reactions: Allergies Allergy/AdvReac Type Severity Reaction Status Date / Time moxifloxacin HCl Allergy "THROAT Verified 12/20/18 08:31 [From Avelox] CLOSES" Penicillins Allergy "THROAT Verified 12/20/18 08:31 CLOSES" Home Medications: Ambulatory Orders Montelukast Na [Singulair -] 10 mg PO HS #0 12/14/14 Omeprazole [Prilosec] 40 mg PO DAILY #0 12/14/14 Hydroxychloroquine Sulfate [Plaquenil] 400 mg PO DAILY 11/03/15 Pregabalin [Lyrica -] 100 mg PO BID 10/26/16 Ranitidine [Zantac -] 150 mg PO HS 08/23/17 Amitriptyline HCl 25 mg PO DAILY 02/01/18 Azithromycin [Zithromax 250mg Tablets -] 250 mg PO UTDICT #6 tab 12/20/18 Ibuprofen 800 mg PO TID #30 tablet 12/20/18 Anemia: Yes Asthma: Yes (H/O ASTHMA-2YRS AGO) Cancer: No Cardiac Disorders: Yes (H/O PERICARDITIS-9YRS AGO) CVA: No COPD: No CHF: No DVT: No Dementia: No Diabetes: No GI Disorders: Yes (IBS, ULCERS) Disorders: No HTN: No Hypercholesterolemia: No Liver Disease: No Seizures: No Thyroid Disease: No - Surgical History Abdominal Surgery: No Appendectomy: No Cardiac Surgery: No Cholecystectomy: Yes Lung Surgery: No Neurologic Surgery: No Orthopedic Surgery: No - Immunization History Immunization Up to Date: Yes - Suicide/Smoking/Psychosocial Hx Smoking Status: No Smoking History: Never smoked Have you smoked in the past 12 months: No Number of Cigarettes Smoked Daily: 0 Hx Alcohol Use: No Drug/Substance Use Hx: No Substance Use Type: None Hx Substance Use Treatment: No Review of Systems - Review of Systems Able to Perform ROS?: Yes Comments:: 12/20/18 10:44 CONSTITUTIONAL: Present: Fever, chills, body aches Absent: diaphoresis, generalized weakness, malaise, loss of appetite HEENT: Present: rhinorrhea, nasal congestion, throat pain. Absent: difficulty swallowing, mouth swelling, ear pain, eye pain, visual Changes CARDIOVASCULAR: Absent: chest pain, loss of consciousness, palpitations, irregular heart rate, peripheral edema RESPIRATORY: Absent: cough shortness of breath, dyspnea with exertion, orthopnea, wheezing, stridor, hemoptysis GASTROINTESTINAL: Absent: abdominal pain, abdominal distension, nausea, vomiting, diarrhea, constipation, melena, hematochezia SKIN: Absent: rash, itching, pallor NEUROLOGIC: Present: headache Absent: focal weakness or paresthesias, dizziness, unsteady gait, seizure, mental status changes, bladder or bowel incontinence Is the patient limited Mosotho proficient: No *Physical Exam - Vital Signs Last Vital Signs Temp Pulse Resp BP Pulse Ox 99.5 F 110 H 17 150/71 96 12/20/18 08:31 12/20/18 08:31 12/20/18 08:31 12/20/18 08:31 12/20/18 08:31 Moderate Sedation - Procedure Monitoring Vital Signs: Procedure Monitoring Vital Signs Temperature 99.5 F 12/20/18 08:31 Pulse Rate 110 H 12/20/18 08:31 Respiratory Rate 17 12/20/18 08:31 Blood Pressure 150/71 12/20/18 08:31 O2 Sat by Pulse Oximetry (%) 96 12/20/18 08:31 *DC/Admit/Observation/Transfer Diagnosis at time of Disposition: Pharyngitis Qualifiers: Pharyngitis/tonsillitis etiology: unspecified etiology Qualified Code(s): J02.9 - Acute pharyngitis, unspecified - Discharge Dispostion Disposition: HOME Condition at time of disposition: Stable Decision to Admit order: No - Referrals Referrals: Elliott Gomez MD [Primary Care Provider] - - Patient Instructions Printed Discharge Instructions: DI for Pharyngitis/Tonsillopharyngitis -- Adult Additional Instructions: Your strep test and flu test were negative today Given your exam, we are treating you with antibiotics. Please take the azithromycin as directed. Please finish the prescription even if you feel better. You may take Motrin 800 mg every 8 hours as needed for pain or fever. Warm water gargles and cough drops and just may also help her symptoms. Please throw way your toothbrush 3 days into treatment to prevent reinfection. Please follow up with your primary care doctor next week. Return to emergency department if you have worsening pain, difficulty swallowing , changes in your voice, lightheadedness, dizziness, or any changes in your symptoms. - Post Discharge Activity Forms/Work/School Notes: Back to Work
== END 2018-12-20 10:53 | disposition home or self-care (01) ==
LOC: JERFT 08:11
DX: J02.9 Acute pharyngitis, unspecified (principal)
CPT/HCPCS: 87070; 87077; 87804; 87880; 99281-25

== ENCOUNTER 2019-11-13 09:43 | Day surgery (SDC) | payer OTHER ==
[2019-11-12 14:20] VITALS: BMI 45.8
[2019-11-13 11:16] VITALS: TEMP 97.9
[2019-11-13 12:14] VITALS: BP 110/57; PULSE 85
== END 2019-11-13 12:25 | disposition home or self-care (01) ==
LOC: JASU-ENDO 09:43
PROVIDERS: ATTEND Internal Medicine Gastroenterology
PROC: 0DJD8ZZ Inspection of Lower Intestinal Tract, Via Natural or Artificial Opening Endoscopic (ICD-10-PCS; principal; 2019-11-13 10:30)
DX: K62.5 Hemorrhage of anus and rectum (principal); K64.8 Other hemorrhoids
CPT/HCPCS: 81025

== ENCOUNTER 2019-11-20 08:59 | Day surgery (SDC) | payer OTHER ==
[2019-11-20 09:23] VITALS: BMI 46.5
[2019-11-20 10:18] VITALS: TEMP 97.5
[2019-11-20 11:52] VITALS: BP 113/60; PULSE 87
--- NOTE | 2019-11-21 14:55 | PATH ---
Surgical Pathology Report Patient Name: DOM DIAMOND [facility]. Rec. #: [id number] /Age/Gender: 1970 (Age: 49) / F Account: [id number] Location: [facility]-ENDOSCOPY Taken: 11/20/2019 Received: 11/20/2019 Reported: 11/21/2019 Physicians: Waldo Shankar D.O. Specimen(s) Received A: DUODENAL BULB NODULE B: ANTRUM NODULE C: FUNDUS D: GASTRIC POLYP Clinical History GERD Postoperative diagnosis: Gastritis Final Diagnosis A. 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 NO SMALL BOWEL MUCOSA IDENTIFIED. B. STOMACH, ANTRAL NODULE, BIOPSY: POLYPOID GASTRIC ANTRAL MUCOSA WITH MILD CHRONIC ACTIVE GASTRITIS. IMMUNOHISTOCHEMICAL STAIN FOR H. PYLORI IS NEGATIVE. C. STOMACH, FUNDUS, BIOPSY: GASTRIC OXYNTIC MUCOSA WITH MILD CHRONIC GASTRITIS. IMMUNOHISTOCHEMICAL STAIN FOR H. PYLORI IS NEGATIVE. D. GASTRIC POLYP, BIOPSY: FUNDIC GLAND POLYP. IMMUNOHISTOCHEMICAL STAIN FOR H. PYLORI IS NEGATIVE. Positive and negative controls (internal if applicable) show appropriate results. Electronically Signed Effie Posada M.D. Gross Description A. Received in formalin, labeled "biopsy nodule duodenal bulb" are 3 alvarado, irregular portions of soft tissue ranging from 0.2-0.4 cm. in greatest dimension. The specimens are submitted in toto in one cassette. B. Received in formalin, labeled "biopsy antral nodule" are 2 alvarado, irregular portions of soft tissue measuring 0.3 and 0.4 cm. in greatest dimension. The specimens are submitted in toto in one cassette. C. Received in formalin, labeled "biopsy fundus" are 3 alvarado, irregular portions of soft tissue ranging from 0.1-0.4 cm. in greatest dimension. The specimens are submitted in toto in one cassette. D. Received in formalin, labeled "biopsy gastric polyp" are 3 alvarado, irregular portions of soft tissue ranging from 0.1-0.3 cm. in greatest dimension. The specimens are submitted in toto in one cassette. DL/11/20/2019 saudi/11/20/2019
== END 2019-11-20 11:25 | disposition home or self-care (01) ==
LOC: JASU-ENDO 08:59
PROVIDERS: ATTEND Internal Medicine Gastroenterology
PROC: 0DB68ZX Excision of Stomach, Via Natural or Artificial Opening Endoscopic, Diagnostic (ICD-10-PCS; 2019-11-20)
PROC: 0DB98ZX Excision of Duodenum, Via Natural or Artificial Opening Endoscopic, Diagnostic (ICD-10-PCS; principal; 2019-11-20 09:00)
DX: K29.50 Unspecified chronic gastritis without bleeding (principal); K29.80 Duodenitis without bleeding; K21.9 Gastro-esophageal reflux disease without esophagitis; K31.7 Polyp of stomach and duodenum; M32.9 Systemic lupus erythematosus, unspecified; M79.7 Fibromyalgia; J45.909 Unspecified asthma, uncomplicated
CPT/HCPCS: 81025; 88305-TC; 88342-TC

== ENCOUNTER 2022-11-02 12:39 | Emergency (ER) | payer OTHER ==
[2022-11-02 12:59] VITALS: RESP 18; TEMP 98; BMI 44.6
[2022-11-02] MEDS ORDERED: ALBUTEROL SO4 2.5/IPRATROPIUM 0.5 INH SOL 3 ML VIAL.NEB. NEB ONE ×2 (13:35→14:05)
[2022-11-02] MEDS ORDERED: ACETAMINOPHEN 1000 MG/100 ML BAG IVPB ONE (13:35)
[2022-11-02] MEDS ORDERED: ACETAMINOPHEN INJECTION 100 ML IVPB ONE (14:04)
[2022-11-02 14:31] LABS: VENOUS O2 SATURATION 58.6 % (70-80); VENOUS PCO2 47.8 mmHg (38-52); VENOUS PH 7.341 (7.310-7.410)
[2022-11-02 14:33] LABS: BASO % 0.9 % (0-2.0); EOS % 2.5 % (0-4.5); HEMATOCRIT 41.2 % (32.4-45.2); HEMOGLOBIN 13.2 GM/dL (10.7-15.3); LYMPH % 24.2 % (8-40); MCH 27.5 pg (25.7-33.7); MEAN PLT VOLUME 9.1 fl (7.5-11.1); MONO % 10.5 % (3.8-10.2); NEUT % 61.9 % (42.8-82.8); PLATELET COUNT 288 10^3/uL (134-434); WHITE BLOOD COUNT 8.4 K/mm3 (4.0-10.0)
[2022-11-02 15:04] LABS: CHLORIDE 108 mmol/L (98-107); SODIUM 140 mmol/L (136-145)
[2022-11-02 15:07] LABS: ALBUMIN 3.6 g/dl (3.4-5.0); CALCIUM 9.4 mg/dL (8.5-10.1)
[2022-11-02 15:08] LABS: BLOOD UREA NITROGEN 16.7 mg/dL (7-18); CO2 24 mmol/L (21-32)
[2022-11-02 15:10] LABS: SGOT/AST 58 U/L (15-37); SGPT/ALT 23 U/L (13-61)
[2022-11-02 15:11] LABS: BILIRUBIN,TOTAL 0.3 mg/dL (0.2-1); TOT PROT 7.4 g/dl (6.4-8.2)
[2022-11-02 15:12] LABS: ALK PHOS 58 U/L (45-117)
[2022-11-02 15:13] LABS: N-TERMINAL BNP 91.5 pg/ml (5-125)
[2022-11-02 15:15] LABS: ANION GAP 8 MMOL/L (8-16); GLUCOSE,RANDOM 83 mg/dL (74-106)
[2022-11-02] MEDS ORDERED: oxyCODONE HCL 5 MG TABLET PO ONE (20:42)
[2022-11-02] MEDS ORDERED: METOCLOPRAMIDE HCL INJECTION 10 MG/2 ML VIAL IVPB ONE (20:42)
[2022-11-02 20:47] VITALS: BP 123/85; PULSE 97
== END 2022-11-02 22:33 | disposition home or self-care (01) ==
LOC: JER 12:39
PROC: 3E0333Z Introduction of Anti-inflammatory into Peripheral Vein, Percutaneous Approach (ICD-10-PCS; principal; 2022-11-02)
PROC: 3E0F7GC Introduction of Other Therapeutic Substance into Respiratory Tract, Via Natural or Artificial Opening (ICD-10-PCS; 2022-11-02)
DX: R06.02 Shortness of breath (principal); R05.1 Acute cough; R51.9 Headache, unspecified
CPT/HCPCS: 0241U-QW; 36415; 71046-TC-FY; 71275-TC; 80053; 82803; 83880; 84132; 84484; 85025; 85379; 93005; 93010; 99285-25; Q9967

== ENCOUNTER 2022-12-21 10:23 | Emergency (ER) | payer OTHER ==
[2022-12-21 10:31] VITALS: BP 120/72; PULSE 89; RESP 20; TEMP 97.8; BMI 44.6
[2022-12-21] MEDS ORDERED: NAPROXEN 500 MG TABLET PO ONE (11:39)
[2022-12-21] MEDS ORDERED: NAPROXEN 500 MG TABLET ONE (11:42)
== END 2022-12-21 12:49 | disposition home or self-care (01) ==
LOC: JERFT 10:23
DX: M79.672 Pain in left foot (principal)
CPT/HCPCS: 73630-TC-LT; 99283-25

== ENCOUNTER 2023-02-23 09:20 | Emergency (ER) | payer OTHER ==
[2023-02-23 09:27] VITALS: BP 136/75; PULSE 74; RESP 16; TEMP 97.9; BMI 44.6
[2023-02-23] MEDS ORDERED: ACETAMINOPHEN 325 MG TABLET (FP) PO ONE (11:48)
[2023-02-23] MEDS ORDERED: ACETAMINOPHEN 325 MG TABLET (FP) ONE (12:12)
== END 2023-02-23 11:50 | disposition home or self-care (01) ==
LOC: JERFT 09:20
DX: Z04.3 Encounter for examination and observation following other accident (principal)
CPT/HCPCS: 70450-TC; 72125-TC; 99284-25

== ENCOUNTER 2023-05-20 12:16 | Observation (INO) | payer OTHER ==
[2023-05-20] MEDS ORDERED: ACETAMINOPHEN 1000 MG/100 ML BAG IVPB ONE (12:41)
[2023-05-20] MEDS ORDERED: ACETAMINOPHEN INJECTION 100 ML IVPB ONE (13:43)
[2023-05-20] MEDS ORDERED: ACETAMINOPHEN 325 MG TABLET (FP) PO ONE (13:56)
[2023-05-20] MEDS ORDERED: ACETAMINOPHEN 325 MG TABLET (FP) ONE (14:20)
[2023-05-20 14:45] LABS: CALCIUM 9.3 mg/dL (8.5-10.1)
[2023-05-20 14:46] LABS: ALBUMIN 3.7 g/dl (3.4-5.0); BLOOD UREA NITROGEN 16.7 mg/dL (7-18)
[2023-05-20 14:50] LABS: BILIRUBIN,TOTAL 0.2 mg/dL (0.2-1); TOT PROT 6.9 g/dl (6.4-8.2)
[2023-05-20 14:53] LABS: N-TERMINAL BNP 16.8 pg/ml (5-125)
[2023-05-20 14:54] LABS: BASO % 0.5 % (0-2.0); EOS % 1.6 % (0-4.5); HEMATOCRIT 42.9 % (32.4-45.2); HEMOGLOBIN 13.3 GM/dL (10.7-15.3); LYMPH % 17.6 % (8-40); MEAN CELL VOLUME 87.1 fl (80-96); MEAN PLT VOLUME 11.1 fl (7.5-11.1); MONO % 11.8 % (3.8-10.2); NEUT % 68.5 % (42.8-82.8); PLATELET COUNT 227 10^3/uL (134-434); RBC 4.92 M/mm3 (3.60-5.2); RDW 13.1 % (11.6-15.6)
[2023-05-20] MEDS ORDERED: morphine CARPU-JECT 4 MG/1 ML DISP.SYRIN IVPUSH ONE (15:31)
[2023-05-20] MEDS ORDERED: morphine SULFATE 4 MG/ML VIAL ONE (15:55)
[2023-05-20] MEDS ORDERED: ALBUTEROL SO4 HFA INHALER IH PRN (17:11)
[2023-05-20 18:40] VITALS: BMI 43.2
[2023-05-20] MEDS: INSULIN SLIDING SCALE (NOVOLOG) 1 VIAL SQ SCH (18:52)
[2023-05-20] MEDS: ACETAMINOPHEN 325 MG TABLET (FP) PO PRN (18:56)
[2023-05-20] MEDS: oxyCODONE HCL 5 MG TABLET PO PRN (18:56)
[2023-05-20] MEDS: HYDROXYCHLOROQUINE SO4 200 MG TABLET (FP) PO SCH (21:41)
[2023-05-20] MEDS: CYCLOBENZAPRINE HCL 5 MG TABLET PO SCH (21:41)
[2023-05-20] MEDS: PREGABALIN 100 MG CAPSULE PO SCH (21:41)
[2023-05-20] MEDS: MONTELUKAST NA 10 MG TABLET PO SCH (21:41)
[2023-05-21] MEDS: ACETAMINOPHEN 325 MG TABLET (FP) PO PRN ×3 (04:06→23:16)
[2023-05-21] MEDS: oxyCODONE HCL 5 MG TABLET PO PRN ×3 (04:07→23:14)
[2023-05-21] MEDS: INSULIN SLIDING SCALE (NOVOLOG) 1 VIAL SQ SCH ×3 (06:57→16:55)
[2023-05-21] MEDS: CYCLOBENZAPRINE HCL 5 MG TABLET PO SCH ×3 (07:02→21:54)
[2023-05-21 09:43] LABS: BASO % 0.7 % (0-2.0); EOS % 2.6 % (0-4.5); HEMATOCRIT 38.8 % (32.4-45.2); HEMOGLOBIN 12.7 GM/dL (10.7-15.3); LYMPH % 29.6 % (8-40); MCH 27.6 pg (25.7-33.7); MCHC 32.7 g/dl (32.0-36.0); MEAN CELL VOLUME 84.5 fl (80-96); MEAN PLT VOLUME 11.2 fl (7.5-11.1); MONO % 13.5 % (3.8-10.2); NEUT % 53.6 % (42.8-82.8); PLATELET COUNT 233 10^3/uL (134-434); RBC 4.59 M/mm3 (3.60-5.2); RDW 13.4 % (11.6-15.6)
[2023-05-21 10:09] LABS: POTASSIUM 3.7 mmol/L (3.5-5.1)
[2023-05-21 10:11] LABS: BLOOD UREA NITROGEN 12.9 mg/dL (7-18); CALCIUM 9.1 mg/dL (8.5-10.1)
[2023-05-21] MEDS: HYDROXYCHLOROQUINE SO4 200 MG TABLET (FP) PO SCH ×2 (10:12→21:54)
[2023-05-21] MEDS: PREGABALIN 100 MG CAPSULE PO SCH ×2 (10:12→21:54)
[2023-05-21] MEDS: FUROSEMIDE 40 MG TABLET (FP) PO SCH (10:12)
[2023-05-21 10:15] LABS: CREATININE 0.8 mg/dL (0.55-1.3)
[2023-05-21] MEDS: FLUTICASONE PROP 0.05% 16 GM NASAL SPRAY NS SCH (11:43)
[2023-05-21] MEDS ORDERED: PANTOPRAZOLE 40 MG TABLET PO ONE (21:23)
[2023-05-21] MEDS: MONTELUKAST NA 10 MG TABLET PO SCH (21:54)
[2023-05-22] MEDS: CYCLOBENZAPRINE HCL 5 MG TABLET PO SCH ×3 (06:27→21:26)
[2023-05-22] MEDS: oxyCODONE HCL 5 MG TABLET PO PRN ×3 (06:28→21:25)
[2023-05-22] MEDS: ACETAMINOPHEN 325 MG TABLET (FP) PO PRN ×3 (06:28→21:24)
[2023-05-22] MEDS: INSULIN SLIDING SCALE (NOVOLOG) 1 VIAL SQ SCH ×3 (06:30→16:36)
[2023-05-22 08:13] LABS: BASO % 1.2 % (0-2.0); EOS % 4.8 % (0-4.5); HEMATOCRIT 38.5 % (32.4-45.2); LYMPH % 34.8 % (8-40); MCH 27.2 pg (25.7-33.7); MCHC 31.2 g/dl (32.0-36.0); MEAN PLT VOLUME 10.9 fl (7.5-11.1); MONO % 16.4 % (3.8-10.2); NEUT % 42.8 % (42.8-82.8); PLATELET COUNT 221 10^3/uL (134-434); RBC 4.43 M/mm3 (3.60-5.2); RDW 13.1 % (11.6-15.6); WHITE BLOOD COUNT 4.3 K/mm3 (4.0-10.0)
[2023-05-22 08:27] LABS: POTASSIUM 3.6 mmol/L (3.5-5.1)
[2023-05-22 08:32] LABS: BLOOD UREA NITROGEN 13.4 mg/dL (7-18); CALCIUM 8.9 mg/dL (8.5-10.1)
[2023-05-22 08:36] LABS: BILIRUBIN,TOTAL 0.2 mg/dL (0.2-1); CREATININE 0.8 mg/dL (0.55-1.3); PHOSPHOROUS 3.9 mg/dL (2.5-4.9); TOT PROT 5.8 g/dl (6.4-8.2)
[2023-05-22 08:46] LABS: ALBUMIN 2.9 g/dl (3.4-5.0)
[2023-05-22] MEDS: HYDROXYCHLOROQUINE SO4 200 MG TABLET (FP) PO SCH ×2 (10:27→21:32)
[2023-05-22] MEDS: PREGABALIN 100 MG CAPSULE PO SCH ×2 (10:27→21:26)
[2023-05-22] MEDS: FUROSEMIDE 40 MG TABLET (FP) PO SCH (10:27)
[2023-05-22] MEDS: PANTOPRAZOLE 40 MG TABLET PO SCH (10:30)
[2023-05-22] MEDS: ENOXAPARIN NA (PORCINE) 40 MG/0.4 ML DISP.SYRIN SQ SCH (10:32)
[2023-05-22] MEDS: FLUTICASONE PROP 0.05% 16 GM NASAL SPRAY NS SCH (14:02)
[2023-05-22] MEDS: MONTELUKAST NA 10 MG TABLET PO SCH (21:26)
[2023-05-23] MEDS: oxyCODONE HCL 5 MG TABLET PO PRN (06:58)
[2023-05-23] MEDS: CYCLOBENZAPRINE HCL 5 MG TABLET PO SCH ×2 (06:58→13:56)
[2023-05-23] MEDS: INSULIN SLIDING SCALE (NOVOLOG) 1 VIAL SQ SCH ×2 (07:01→11:55)
[2023-05-23 08:51] LABS: BASO % 1.5 % (0-2.0); EOS % 5.1 % (0-4.5); HEMATOCRIT 41.8 % (32.4-45.2); HEMOGLOBIN 13.3 GM/dL (10.7-15.3); MCH 27.4 pg (25.7-33.7); MCHC 31.7 g/dl (32.0-36.0); MEAN CELL VOLUME 86.6 fl (80-96); MEAN PLT VOLUME 10.6 fl (7.5-11.1); MONO % 11.2 % (3.8-10.2); NEUT % 47.2 % (42.8-82.8); PLATELET COUNT 251 10^3/uL (134-434); RBC 4.83 M/mm3 (3.60-5.2); RDW 13.3 % (11.6-15.6); WHITE BLOOD COUNT 4.1 K/mm3 (4.0-10.0)
[2023-05-23] MEDS: PREGABALIN 100 MG CAPSULE PO SCH (10:18)
[2023-05-23] MEDS: PANTOPRAZOLE 40 MG TABLET PO SCH (10:18)
[2023-05-23] MEDS: ACETAMINOPHEN 500 MG TABLET (FP) PO SCH ×2 (10:18→13:57)
[2023-05-23] MEDS: HYDROXYCHLOROQUINE SO4 200 MG TABLET (FP) PO SCH (10:20)
[2023-05-23] MEDS: FLUTICASONE PROP 0.05% 16 GM NASAL SPRAY NS SCH (10:20)
[2023-05-23] MEDS: ENOXAPARIN NA (PORCINE) 40 MG/0.4 ML DISP.SYRIN SQ SCH (10:20)
[2023-05-23] MEDS: FUROSEMIDE 40 MG TABLET (FP) PO SCH (10:28)
[2023-05-23 10:44] LABS: CALCIUM 9.5 mg/dL (8.5-10.1)
[2023-05-23 10:46] LABS: ALBUMIN 3.1 g/dl (3.4-5.0); BILIRUBIN,TOTAL 0.2 mg/dL (0.2-1); MAGNESIUM 2.1 mg/dL (1.8-2.4); TOT PROT 6.5 g/dl (6.4-8.2)
[2023-05-23 10:47] LABS: CREATININE 0.9 mg/dL (0.55-1.3)
[2023-05-23 10:48] LABS: PHOSPHOROUS 3.7 mg/dL (2.5-4.9)
[2023-05-23 11:09] VITALS: BP 108/59; PULSE 87; RESP 18; TEMP 98.7
== END 2023-05-23 15:55 | disposition home or self-care (01) ==
LOC: JER 12:16 → JERBED 15:32 → J6S 18:34
PROVIDERS: ADMIT Internal Medicine; ATTEND Internal Medicine
PROC: 3E023GC Introduction of Other Therapeutic Substance into Muscle, Percutaneous Approach (ICD-10-PCS; principal; 2023-05-20)
PROC: 3E0333Z Introduction of Anti-inflammatory into Peripheral Vein, Percutaneous Approach (ICD-10-PCS; 2023-05-20)
DX: R26.2 Difficulty in walking, not elsewhere classified (principal); M25.552 Pain in left hip; L93.0 Discoid lupus erythematosus; E11.9 Type 2 diabetes mellitus without complications; M79.7 Fibromyalgia; K58.9 Irritable bowel syndrome, unspecified; M19.90 Unspecified osteoarthritis, unspecified site; Z88.0 Allergy status to penicillin; Z88.8 Allergy status to other drugs, medicaments and biological substances
CPT/HCPCS: 36415; 71045-TC-FY; 72170-TC-FY; 73502-TC-LT-FY; 73700-TC-RT; 80048; 80053; 82962; 83735; 83880; 84100; 84484; 85025; 85651; 86140; 93005; 93010; 96372; 96374; 97116-GP; 97162-GP; 99285-25; G0378

== ENCOUNTER 2024-08-05 12:31 | Emergency (ER) | payer OTHER ==
[2024-08-05 12:44] VITALS: TEMP 98.1; BMI 41.0
[2024-08-05] MEDS ORDERED: oxyCODONE HCL 5 MG TABLET ONE (14:18)
[2024-08-05] MEDS ORDERED: ACETAMINOPHEN 500 MG TABLET (FP) ONE (14:18)
[2024-08-05] MEDS: oxyCODONE HCL 5 MG TABLET PO ONE (14:21)
[2024-08-05] MEDS: ACETAMINOPHEN 500 MG TABLET (FP) PO ONE (14:21)
[2024-08-05 15:29] LABS: BASO % 0.7 % (0-2.0); HEMATOCRIT 42.2 % (32.4-45.2); HEMOGLOBIN 13.5 GM/dL (10.7-15.3); LYMPH % 38.9 % (8-40); MCH 27.2 pg (25.7-33.7); MCHC 31.9 g/dl (32.0-36.0); MEAN CELL VOLUME 85.3 fl (80-96); MEAN PLT VOLUME 9.5 fl (7.5-11.1); MONO % 11.9 % (3.8-10.2); NEUT % 43.5 % (42.8-82.8); PLATELET COUNT 264 10^3/uL (134-434); RBC 4.95 M/mm3 (3.60-5.2); RDW 13.8 % (11.6-15.6); WHITE BLOOD COUNT 5.4 K/mm3 (4.0-10.0)
[2024-08-05 15:49] LABS: ALBUMIN 3.8 g/dl (3.4-5.0); BLOOD UREA NITROGEN 14.5 mg/dL (7-18); CALCIUM 9.6 mg/dL (8.5-10.1)
[2024-08-05 15:53] LABS: CREATININE 1.1 mg/dL (0.55-1.3)
[2024-08-05 15:54] LABS: BILIRUBIN,TOTAL 0.2 mg/dL (0.2-1); TOT PROT 7.2 g/dl (6.4-8.2)
[2024-08-05 16:41] VITALS: BP 122/64; PULSE 80; RESP 15
== END 2024-08-05 16:44 | disposition home or self-care (01) ==
LOC: JER 12:31
DX: M32.9 Systemic lupus erythematosus, unspecified (principal); M79.7 Fibromyalgia
CPT/HCPCS: 36415; 71045-TC-FY; 80053; 84484; 85025; 93005; 93010; 93308; 99285-25

== ENCOUNTER 2024-08-15 11:02 | Emergency (ER) | payer OTHER ==
[2024-08-15 11:28] VITALS: BMI 40.8
[2024-08-15] MEDS ORDERED: MAG HYDROX/AL HYDROX/SIMETH 30 ML UNIT-DOSE CUP ONE (12:34)
[2024-08-15] MEDS: MAG HYDROX/AL HYDROX/SIMETH 30 ML UNIT-DOSE CUP PO ONE (12:42)
[2024-08-15] MEDS ORDERED: PANTOPRAZOLE 40 MG TABLET PO ONE (12:43)
[2024-08-15] MEDS: PANTOPRAZOLE 40 MG TABLET PO ONE (12:46)
[2024-08-15 13:33] LABS: BASO % 0.7 % (0-2.0); EOS % 3.3 % (0-4.5); HEMATOCRIT 41.6 % (32.4-45.2); HEMOGLOBIN 13.2 GM/dL (10.7-15.3); LYMPH % 23.2 % (8-40); MCH 27.4 pg (25.7-33.7); MCHC 31.7 g/dl (32.0-36.0); MEAN CELL VOLUME 86.5 fl (80-96); MEAN PLT VOLUME 9.2 fl (7.5-11.1); MONO % 9.9 % (3.8-10.2); NEUT % 62.9 % (42.8-82.8); PLATELET COUNT 245 10^3/uL (134-434); RBC 4.81 M/mm3 (3.60-5.2); RDW 13.4 % (11.6-15.6); WHITE BLOOD COUNT 7.8 K/mm3 (4.0-10.0)
[2024-08-15 13:42] LABS: INR 1.06 (0.83-1.09)
[2024-08-15 13:45] LABS: ACTIVATED PTT 36.5 SECONDS (25.2-36.5)
[2024-08-15 14:00] LABS: ALBUMIN 4.1 g/dl (3.4-5.0); BLOOD UREA NITROGEN 13.1 mg/dL (7-18); CALCIUM 9.8 mg/dL (8.5-10.1)
[2024-08-15 14:05] LABS: BILIRUBIN,TOTAL 0.4 mg/dL (0.2-1); TOT PROT 7.5 g/dl (6.4-8.2)
[2024-08-15 16:02] VITALS: BP 116/70; PULSE 89; RESP 18; TEMP 98.2
[2024-08-15] MEDS ORDERED: LIDOCAINE VISCOUS 2% ORAL/TOP 15 ML UNIT-DOSE CUP ONE (16:30)
[2024-08-15] MEDS ORDERED: ACETAMINOPHEN INJECTION 100 ML ONE (16:30)
[2024-08-15] MEDS: ACETAMINOPHEN 1000 MG/100 ML BAG IVPB ONE (16:47)
[2024-08-15] MEDS: LIDOCAINE VISCOUS 2% ORAL/TOP 15 ML UNIT-DOSE CUP MM ONE (16:48)
== END 2024-08-15 17:41 | disposition home or self-care (01) ==
LOC: JER 11:02
PROC: 3E033NZ Introduction of Analgesics, Hypnotics, Sedatives into Peripheral Vein, Percutaneous Approach (ICD-10-PCS; principal; 2024-08-15)
DX: R11.10 Vomiting, unspecified (principal); R13.10 Dysphagia, unspecified; T18.128A Food in esophagus causing other injury, initial encounter
CPT/HCPCS: 36415; 71046-TC-FY; 71250-TC; 80053; 83690; 83735; 84484; 85025; 85610; 85730; 93005; 93010; 99285-25; J0131

== ENCOUNTER 2024-08-20 11:15 | Observation (INO) | payer OTHER ==
[2024-08-20 13:08] LABS: BASO % 0.7 % (0-2.0); EOS % 4.7 % (0-4.5); HEMATOCRIT 39.2 % (32.4-45.2); HEMOGLOBIN 12.7 GM/dL (10.7-15.3); MCH 27.6 pg (25.7-33.7); MCHC 32.3 g/dl (32.0-36.0); MEAN CELL VOLUME 85.6 fl (80-96); MEAN PLT VOLUME 9.3 fl (7.5-11.1); NEUT % 45.6 % (42.8-82.8); PLATELET COUNT 256 10^3/uL (134-434); RBC 4.58 M/mm3 (3.60-5.2); RDW 13.6 % (11.6-15.6)
[2024-08-20 13:13] LABS: INR 1.07 (0.83-1.09); PROTHROMBIN TIME (PATIENT) 12.3 SEC (9.7-13.0)
[2024-08-20 13:26] LABS: POTASSIUM 4.2 mmol/L (3.5-5.1)
[2024-08-20 13:27] LABS: ALBUMIN 3.8 g/dl (3.4-5.0); CALCIUM 9.8 mg/dL (8.5-10.1)
[2024-08-20 13:29] LABS: BLOOD UREA NITROGEN 8.8 mg/dL (7-18)
[2024-08-20 13:31] LABS: CREATININE 0.9 mg/dL (0.55-1.3)
[2024-08-20 13:33] LABS: BILIRUBIN,TOTAL 0.3 mg/dL (0.2-1); TOT PROT 7.2 g/dl (6.4-8.2)
[2024-08-20] MEDS: DEXTROSE 5%-0.45% SALINE 1,000 ML IV SCH (14:03)
[2024-08-20] MEDS ORDERED: PATIENT'S OWN MEDICATION (NON-FORMULARY) (Tizanidine Hcl [Tizanidine Hcl] 4 MG Tablet) PO PRN (17:17)
[2024-08-20] MEDS ORDERED: ALBUTEROL SO4 HFA INHALER IH PRN (17:17)
[2024-08-20] MEDS: ACETAMINOPHEN 1000 MG/100 ML BAG IVPB PRN (17:37)
[2024-08-20 18:19] VITALS: BMI 41.4
[2024-08-20] MEDS: MAG HYDROX/AL HYDROX/SIMETH -MYLANTA- ORAL SUSPENSION PO SCH (19:32)
[2024-08-20] MEDS: MAG HYDROX/AL HYDROX/SIMETH 30 ML UNIT-DOSE CUP PO SCH (21:12)
[2024-08-20] MEDS: MONTELUKAST NA 10 MG TABLET PO SCH (21:12)
[2024-08-20] MEDS: INSULIN ASPART SLIDING SCALE (NOVOLOG) 1 VIAL SQ SCH (21:17)
[2024-08-20] MEDS ORDERED: PREGABALIN 100 MG CAPSULE PO SCH (22:00)
[2024-08-20] MEDS ORDERED: PATIENT'S OWN MEDICATION (NON-FORMULARY) (Cyclosporine [Restasis] 1 EACH Droperette) OP SCH (22:00)
[2024-08-20] MEDS: HYDROXYCHLOROQUINE SO4 200 MG TABLET (FP) PO SCH (22:51)
[2024-08-20] MEDS: FLUTICASONE PROP 0.05% 16 GM NASAL SPRAY NS SCH (22:51)
[2024-08-21] MEDS: BACLOFEN 10 MG TABLET (FP) PO ONE (02:06)
[2024-08-21] MEDS ORDERED: TORSEMIDE 10 MG TABLET PO SCH (06:00)
[2024-08-21 08:12] LABS: BASO % 1.2 % (0-2.0); EOS % 5.7 % (0-4.5); HEMATOCRIT 37.7 % (32.4-45.2); HEMOGLOBIN 12.1 GM/dL (10.7-15.3); LYMPH % 38.5 % (8-40); MCH 27.6 pg (25.7-33.7); MCHC 32.1 g/dl (32.0-36.0); MEAN CELL VOLUME 85.9 fl (80-96); MEAN PLT VOLUME 9.3 fl (7.5-11.1); MONO % 14.1 % (3.8-10.2); NEUT % 40.5 % (42.8-82.8); PLATELET COUNT 249 10^3/uL (134-434); RBC 4.39 M/mm3 (3.60-5.2); RDW 13.3 % (11.6-15.6); WHITE BLOOD COUNT 3.7 K/mm3 (4.0-10.0)
[2024-08-21 08:14] LABS: INR 1.16 (0.83-1.09)
[2024-08-21 08:28] LABS: POTASSIUM 4.1 mmol/L (3.5-5.1)
[2024-08-21 08:34] LABS: ALBUMIN 3.4 g/dl (3.4-5.0); BLOOD UREA NITROGEN 6.4 mg/dL (7-18); CALCIUM 9.4 mg/dL (8.5-10.1)
[2024-08-21 08:38] LABS: BILIRUBIN,TOTAL 0.2 mg/dL (0.2-1); CREATININE 0.8 mg/dL (0.55-1.3); TOT PROT 6.2 g/dl (6.4-8.2)
[2024-08-21] MEDS: PANTOPRAZOLE SODIUM 40 MG VIAL IVPUSH SCH (09:58)
[2024-08-21] MEDS ORDERED: PANTOPRAZOLE 40 MG TABLET PO SCH (10:00)
[2024-08-21] MEDS ORDERED: PATIENT'S OWN MEDICATION (NON-FORMULARY) (Semaglutide [Rybelsus] 3 MG Tablet) PO SCH (10:00)
[2024-08-21 13:58] VITALS: BP 127/83; PULSE 69; RESP 18; TEMP 98.6
[2024-08-22] MEDS ORDERED: PANTOPRAZOLE 40 MG TABLET PO SCH (10:00)
== END 2024-08-21 17:06 | disposition home or self-care (01) ==
LOC: JER 11:15 → UNDOADMOB 14:56 → JERBED 14:56 → INTOOBSV 14:56 → JERBED 15:51 → J6S 15:51
PROVIDERS: ADMIT Internal Medicine; ATTEND Internal Medicine
PROC: 3E033GC Introduction of Other Therapeutic Substance into Peripheral Vein, Percutaneous Approach (ICD-10-PCS; principal; 2024-08-20)
PROC: 3E033NZ Introduction of Analgesics, Hypnotics, Sedatives into Peripheral Vein, Percutaneous Approach (ICD-10-PCS; 2024-08-20)
PROC: 0DB98ZX Excision of Duodenum, Via Natural or Artificial Opening Endoscopic, Diagnostic (ICD-10-PCS; 2024-08-20)
PROC: 0DB68ZX Excision of Stomach, Via Natural or Artificial Opening Endoscopic, Diagnostic (ICD-10-PCS; 2024-08-20)
PROC: 0DB38ZX Excision of Lower Esophagus, Via Natural or Artificial Opening Endoscopic, Diagnostic (ICD-10-PCS; 2024-08-20)
DX: R13.10 Dysphagia, unspecified (principal); M32.9 Systemic lupus erythematosus, unspecified; K58.9 Irritable bowel syndrome, unspecified; E11.9 Type 2 diabetes mellitus without complications; M79.7 Fibromyalgia; J45.909 Unspecified asthma, uncomplicated; M06.9 Rheumatoid arthritis, unspecified; K29.70 Gastritis, unspecified, without bleeding; K21.9 Gastro-esophageal reflux disease without esophagitis; I10 Essential (primary) hypertension; E78.5 Hyperlipidemia, unspecified; I31.9 Disease of pericardium, unspecified; Z88.0 Allergy status to penicillin; Z88.8 Allergy status to other drugs, medicaments and biological substances
CPT/HCPCS: 36415; 71045-TC-FY; 80048; 80053; 82962; 83735; 85025; 85610; 86850; 86900; 86901; 88305-TC; 88342-TC; 93005; 93010; 96365; 96375; 99285-25; G0378; J0131; J0475